=== PATIENT | female | born 1960 | race Caucasian/White ===

== ENCOUNTER 2017-04-27 18:28 | Emergency (ER) | payer OTHER, MEDICARE, MEDICAID ==
[~2017-04-27 18:28] MED LIST: AMBIEN; AMBIEN10 MG; AMITRIPTYLINE; DILAUDID2 MG PO; ELAVIL25 MG PO; FLEXERIL; FLEXERIL10 MG PO; HYDROCODON-ACE1 EAC7 PO; HYDROCODONE; METOPROLOL; METOPXL50; TOPROL XL100 M1 PO; TYLENOL; ULTRAM50 MG PO; ZOFRAN4 M1 SL; [UNRECOGNIZED DRUG - OTHER]
[2017-04-27] MEDS ORDERED: CELEBREX100 M1 PO (18:41)
[2017-04-27] MEDS ORDERED: MORPHINE PAIN PUMP (18:43)
[2017-04-27] MEDS ORDERED: NORCO 5/3251 TAB PO (19:03)
== END 2017-04-27 19:30 ==
LOC: EDMED 18:28
DX: S16.1XXA Strain of muscle, fascia and tendon at neck level, initial encounter (principal); S39.012A Strain of muscle, fascia and tendon of lower back, initial encounter; I10 Essential (primary) hypertension; V49.40XA Driver injured in collision with unspecified motor vehicles in traffic accident, initial encounter